=== PATIENT | female | born 1995 | race Caucasian/White ===

== ENCOUNTER 2020-04-18 08:00 | Emergency (ER) | payer BC ==
[~2020-04-18] VITALS: Ht 172.7 cm; Wt 140.0 kg
[2020-04-18] MEDS ORDERED: IBUPROFEN 600MG TABLET PO ONE (08:30)
[2020-04-18] MEDS ORDERED: BACITRACIN ZINC OINT UDPKT TOP ONE (08:30)
[2020-04-18] MEDS ORDERED: LIDOCAINE HCL/PF 1% 10 MG/ML 5ML VIAL IJ ONE (08:30)
[2020-04-18 09:25] VITALS: BP 117/81
== END 2020-04-18 09:32 | disposition home or self-care (01) ==
LOC: ER 08:00
DX: S71.111A Laceration without foreign body, right thigh, initial encounter (principal); Y93.18 Activity, surfing, windsurfing and boogie boarding; Y93.89 Activity, other specified; Y92.89 Other specified places as the place of occurrence of the external cause; Y99.8 Other external cause status
CPT/HCPCS: 12002; 99282; J3490